=== PATIENT | male | born 1990 | race Caucasian/White ===

== ENCOUNTER 2017-03-27 02:03 | Emergency (ER) | payer MEDICAID, OTHER ==
[2017-03-27 02:04] VITALS: BMI 32.8
[2017-03-27 02:14] VITALS: BP 144/78; PULSE 80; RESP 17; TEMP 97.9; O2SAT 99
--- NOTE | 2017-03-27 02:35 | ED PDOC ---
Arrival/HPI - General Chief Complaint: Medical Clearance Time Seen by Provider: 03/27/17 02:12 Historian: Patient - History of Present Illness Narrative History of Present Illness (Text): 03/27/17 02:31 Arun Bradley is a 27 year old male smoker, whose past medical history includes anxiety, who presents to the ED for head "tingling." Patient states yesterday morning he woke up with a tingling sensation in his head and right upper extremity, which resolved on its own. Patient states tonight while going to sleep he felt similar tingling sensation, which also resolved after a few minutes. Patient states he feels fine currently but reports he was concerned and came in for further evaluation. Patient denies any headache, dizziness, vision changes, speech changes, focal neurological deficits, chest pain, nausea , vomiting, neck pain, back pain, or any other complaints. Symptom Onset: Gradual Symptom Course: Resolved Activities at Onset: Rest, Light Context: Home Past Medical History - Provider Review Nursing Documentation Reviewed: Yes - Psychiatric Hx Panic Disorder: Yes (3 yrs ago) Hx Substance Use: No Family/Social History - Physician Review Nursing Documentation Reviewed: Yes Family/Social History: Unknown Family HX Smoking Status: Current Some Days Smoker Hx Alcohol Use: Yes Hx Substance Use: No Allergies/Home Meds Allergies/Adverse Reactions: Allergies No Known Allergies Allergy (Verified 03/27/17 02:14) Home Medications: Home Meds Medication Instructions Recorded Confirmed No Known Home Med 06/10/16 03/27/17 Review of Systems - Physician Review All systems were reviewed & negative as marked: Yes - Review of Systems Constitutional: Normal. absent: Fevers Eyes: Normal. absent: Vision Changes ENT: Normal Respiratory: Normal. absent: SOB, Cough Cardiovascular: Normal. absent: Chest Pain Gastrointestinal: Normal. absent: Abdominal Pain, Diarrhea, Nausea, Vomiting Genitourinary Male: Normal. absent: Dysuria, Frequency, Hematuria, Urinary Output Changes Musculoskeletal: Normal. absent: Back Pain, Neck Pain Skin: Normal Neurological: absent: Headache, Dizziness, Focal Weakness, Speech Changes Endocrine: Normal Hemo/Lymphatic: Normal Psychiatric: Normal Physical Exam Vital Signs Reviewed: Yes Vital Signs Temp Pulse Resp BP Pulse Ox 03/27/17 02:13 97.9 F 80 17 144/78 99 Temperature: Afebrile Blood Pressure: Normal Pulse: Regular Respiratory Rate: Normal Appearance: Positive for: Well-Appearing, Non-Toxic, Comfortable Pain Distress: None Mental Status: Positive for: Alert and Oriented X 3 - Systems Exam Head: Present: Atraumatic, Normocephalic Pupils: Present: PERRL Extroacular Muscles: Present: EOMI Conjunctiva: Present: Normal Mouth: Present: Moist Mucous Membranes Neck: Present: Normal Range of Motion Respiratory/Chest: Present: Clear to Auscultation, Good Air Exchange. No: Respiratory Distress, Accessory Muscle Use Cardiovascular: Present: Regular Rate and Rhythm, Normal S1, S2. No: Murmurs Abdomen: Present: Normal Bowel Sounds. No: Tenderness, Distention, Peritoneal Signs Upper Extremity: Present: Normal Inspection. No: Cyanosis, Edema Lower Extremity: Present: Normal Inspection. No: Edema Neurological: Present: GCS=15, CN II-XII Intact, Speech Normal Skin: Present: Warm, Dry, Normal Color. No: Rashes Psychiatric: Present: Alert, Oriented x 3, Normal Insight, Normal Concentration Medical Decision Making ED Course and Treatment: 03/27/17 02:31 Impression: 27 year old male complaining of head and right arm "tingling" sensation. Plan: -- CT Head w/o contrast -- EKG -- Chest X-ray -- Labs -- Reassess and disposition Progress Notes: 03/27/17 03:44 Reviewed radiology, CT Head shows: Brain: No intracranial hemorrhage. No mass. No definite edema. Ventricles: No hydrocephalus. Bones/joints: No acute fracture. Soft tissues: Unremarkable. Sinuses: Scattered minimal mucosal thickening of ethmoid sinuses. Mastoid air cells: No mastoid effusion. Orbits: Unremarkable as visualized. IMPRESSION: 1. No acute intracranial abnormality. 2. Incidental/non-acute findings are described above. 03/27/17 04:03 Reviewed EKG, sinus bradycardia at 48 bpm. Sinus arrhythmia. Non-specific ST/T wave changes. 03/27/17 04:43 Reviewed Chest X-ray, shows no acute processes. 03/27/17 05:01 On reevaluation the patient feels better and is in no acute distress. I have discussed the results and plan with the patient, who expresses understanding. Patient given the opportunity to ask question, all questions were answered and there is agreement with the plan to discharge the patient home. Patient is stable for discharge. Patient was instructed to follow up with physician/clinic in 1-2 days or return if symptoms persist/worsen or new concerning symptoms arise. Re-evaluation Time: 05:01 Reassessment Condition: Re-examined, Improved - Lab Interpretations Lab Results: 03/27/17 04:00 03/27/17 04:00 Lab Results 03/27/17 04:00: Sodium 138, Potassium 3.8, Chloride 101, Carbon Dioxide 26, Anion Gap 15, BUN 28 H, Creatinine 1.1, Est GFR ( Amer) > 60, Est GFR ( Non-Af Amer) > 60, Random Glucose 86, Calcium 9.6, Total Bilirubin 0.5, AST 33, ALT 53, Alkaline Phosphatase 44, Total Protein 7.4, Albumin 4.5, Globulin 2.9, Albumin/Globulin Ratio 1.6 03/27/17 04:00: WBC 6.7, RBC 5.40, Hgb 15.7, Hct 44.7, MCV 82.8, MCH 29.1, MCHC 35.1, RDW 12.9, Plt Count 198, MPV 9.4, Gran % 45.9 L, Lymph % (Auto) 40.0 H, [place] % (Auto) 8.2 H, Eos % (Auto) 5.8 H, Baso % (Auto) 0.1, Gran # 3.05, Lymph # 2.7, [place] # 0.6, Eos # 0.4, Baso # 0.01 I have reviewed the lab results: Yes - RAD Interpretation Radiology Orders: 03/27/17 02:31 HEAD W/O CONTRAST [CT] Stat 03/27/17 03:51 CHEST TWO VIEWS (PA/LAT) [RAD] Stat Tree Chipper: ED Physician, Radiologist - EKG Interpretation Interpreted by ED Physician: Yes Type: 12 lead EKG - Scribe Statement The provider has reviewed the documentation as recorded by the Chris Blum Provider Scribe Attestation: All medical record entries made by the Scribe were at my direction and personally dictated by me. I have reviewed the chart and agree that the record accurately reflects my personal performance of the history, physical exam, medical decision making, and the department course for this patient. I have also personally directed, reviewed, and agree with the discharge instructions and disposition. Disposition/Present on Arrival - Present on Arrival Any Indicators Present on Arrival: No History of DVT/PE: No History of Uncontrolled Diabetes: No Urinary Catheter: No History of Decub. Ulcer: No History Surgical Site Infection Following: None - Disposition Have Diagnosis and Disposition been Completed?: Yes Diagnosis: Anxiety Disposition: HOME/ ROUTINE Disposition Time: 05:01 Patient Problems: Current Active Problems Problem Status Onset Anxiety Acute Condition: GOOD Discharge Instructions (ExitCare): Anxiety (ED) Additional Instructions: drink plenty of fluids Referrals: Rosibel Hathaway MD [Primary Care Provider] - Follow up with primary Forms: [email or web address] ([place])
--- NOTE | 2017-03-27 03:37 | CT ---
EXAM: CT Head Without Intravenous Contrast CLINICAL HISTORY: 27 years old, male; Pain; Headache; Additional info: [facility] TECHNIQUE: Axial computed tomography images of the head/brain without intravenous contrast. All CT scans at this facility use one or more dose reduction techniques, viz.: automated exposure control; ma/kV adjustment per patient size (including targeted exams where dose is matched to indication; i.e. head); or iterative reconstruction technique. COMPARISON: No relevant prior studies available. FINDINGS: Brain: No intracranial hemorrhage. No mass. No definite edema. Ventricles: No hydrocephalus. Bones/joints: No acute fracture. Soft tissues: Unremarkable. Sinuses: Scattered minimal mucosal thickening of ethmoid sinuses. Mastoid air cells: No mastoid effusion. Orbits: Unremarkable as visualized. IMPRESSION: 1. No acute intracranial abnormality. 2. Incidental/non-acute findings are described above.
[2017-03-27 04:15] LABS: BASO # 0.01 K/mm3 (0.0-2.0); BASO % 0.1 % (0.0-3.0); EOS # 0.4 (0.0-0.7); EOS % 5.8 % (1.5-5.0); GRAN # 3.05 (1.4-6.5); GRAN % 45.9 % (50.0-68.0); HEMATOCRIT 44.7 % (42.0-52.0); LYMPH # 2.7 (1.2-3.4); MEAN CELL VOLUME 82.8 fl (80.0-105.0); MEAN CORPUSCULAR HEMOGLOBIN 29.1 pg (25.0-35.0); MEAN CORPUSCULAR HGB CONC 35.1 g/dl (31.0-37.0); MEAN PLATELET VOLUME 9.4 fl (7.0-11.0); MONO # 0.6 (0.1-0.6); MONO % 8.2 % (1.0-6.0); RED CELL DISTRIBUTION WIDTH 12.9 % (11.5-14.5); WHITE BLOOD COUNT 6.7 10^3/ul (4.5-11.0)
[2017-03-27 04:30] LABS: ALB/GLOB RATIO 1.6 (1.1-1.8); ALKALINE PHOSPHATASE 44 U/L (38-133); ALT/SGPT 53 U/L (7-56); AST/SGOT 33 U/L (15-59); BILIRUBIN,TOTAL 0.5 mg/dL (0.2-1.3); BLOOD UREA NITROGEN 28 mg/dL (7-21); CALCIUM 9.6 mg/dL (8.4-10.5); CARBON DIOXIDE 26 mmol/L (21-33); CHLORIDE 101 mmol/L (98-107); GFR AFRICAN-AMERICAN > 60; GLUCOSE,RANDOM 86 mg/dL (70-110); POTASSIUM 3.8 mmol/L (3.6-5.0); SODIUM 138 mmol/L (132-148); TOTAL PROTEIN 7.4 g/dL (5.8-8.3)
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
--- NOTE | 2017-03-27 09:42 | CARD ---
APPROVED REPORT EKG Measurement Heart [id number] <Conclusion> Marked sinus bradycardia with marked sinus arrhythmia Rightward axis Borderline ECG
== END 2017-03-27 05:13 | disposition home or self-care (01) ==
LOC: ED 02:03
DX: F41.9 Anxiety disorder, unspecified (principal)

== ENCOUNTER 2018-05-12 02:37 | Emergency (ER) | payer MEDICAID ==
[2018-05-12 02:38] VITALS: BMI 32.8
[2018-05-12 02:54] VITALS: BP 151/74; PULSE 63; RESP 18; TEMP 98.1; O2SAT 99
== END 2018-05-12 03:16 | disposition left against medical advice (07) ==
LOC: ED 02:37
DX: Z02.89 Encounter for other administrative examinations (principal); M54.9 Dorsalgia, unspecified

== ENCOUNTER 2018-06-17 23:26 | Emergency (ER) | payer MEDICAID ==
[2018-06-17 23:42] VITALS: BP 119/90; PULSE 72; RESP 18; O2SAT 98
[2018-06-17 23:43] VITALS: BMI 30.5
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
--- NOTE | 2018-06-18 09:21 | RAD ---
Date of service: 06/18/2018 PROCEDURE: Cervical Spine Radiographs. HISTORY: Pain. COMPARISON: None available. FINDINGS: BONES: Alignment maintained. No fracture. Dens Intact. DISC SPACES: Normal. SOFT TISSUES: Normal. No prevertebral soft tissue swelling. OTHER FINDINGS: None. IMPRESSION: Normal cervical spine radiographs
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
== END 2018-06-18 02:13 | disposition home or self-care (01) ==
LOC: ED 23:26
DX: S13.4XXA Sprain of ligaments of cervical spine, initial encounter (principal); R51 Headache; R07.81 Pleurodynia; V47.5XXA Car driver injured in collision with fixed or stationary object in traffic accident, initial encounter; Y92.410 Unspecified street and highway as the place of occurrence of the external cause

== ENCOUNTER 2018-08-25 06:07 | Emergency (ER) | payer MEDICAID ==
[2018-08-25 06:08] VITALS: BMI 30.5
[2018-08-25 06:55] VITALS: PULSE 84; RESP 18; TEMP 99.5; O2SAT 97
[2018-08-25 06:57] VITALS: BP 119/68
--- NOTE | 2018-08-25 07:25 | ED PDOC ---
Arrival/HPI - General Chief Complaint: Flu-like Symptoms Time Seen by Provider: 08/25/18 07:14 Historian: Patient - History of Present Illness Narrative History of Present Illness (Text): 08/25/18 07:25 28 year old male, with no significant past medical history presents to the emergency department complaining of body aches and fever since last night. Patient states that he took Tylenol with little relief. He also reports assoc iated headache. Patient denies chills, dizziness, chest pain, shortness of breath, dyspnea on exertion, cough, abdominal pain, nausea, vomiting, diarrhea, back pain, neck pain, or any other complaint. Time/Duration: 24 hours Symptom Onset: Gradual Symptom Course: Unchanged Activities at Onset: Light Context: Home Past Medical History - Provider Review Nursing Documentation Reviewed: Yes - Infectious Disease Hx of Infectious Diseases: None - Psychiatric Hx Panic Disorder: Yes (3 yrs ago) Hx Substance Use: No - Anesthesia Hx Anesthesia: No Family/Social History - Physician Review Nursing Documentation Reviewed: Yes Family/Social History: No Known Family HX Smoking Status: Current Some Days Smoker Hx Alcohol Use: Yes Hx Substance Use: No Allergies/Home Meds Allergies/Adverse Reactions: Allergies No Known Allergies Allergy (Verified 06/17/18 23:47) Review of Systems - Physician Review All systems were reviewed & negative as marked: Yes - Review of Systems Respiratory: absent: SOB Cardiovascular: absent: Chest Pain Physical Exam - Physical Exam Narrative Physical Exam (Text): 08/25/18 07:25 Constitutional: No acute distress. Head: Normocephalic. Atraumatic. Eyes: PERRL. ENT: Moist mucous membranes. Neck: Supple. No nuchal rigidity. Cardiovascular: Regular rate. Chest: No tenderness. Respiratory: Clear to auscultation bilaterally. GI: Soft. Nontender. Nondistended. Back: No CVA tenderness. Musculoskeletal: No tenderness or swelling of extremities. Skin: No rash. Neurologic: Alert, no focal deficit. Vital Signs Reviewed: Yes Vital Signs Temp Pulse Resp BP Pulse Ox 08/25/18 06:56 119/68 08/25/18 06:51 99.5 F 84 18 97 Temperature: Afebrile Blood Pressure: Normal Pulse: Regular Respiratory Rate: Normal Appearance: Positive for: Well-Appearing, Non-Toxic, Comfortable Pain Distress: None Mental Status: Positive for: Alert and Oriented X 3 Medical Decision Making ED Course and Treatment: 08/25/18 07:25 Impression: 28 year old male who presents to the emergency department complaining of fever and body aches. Consistent with influenza within treatment period and without vital sign abnormalities and appears well. Plan: -- Tamiflu -- Toradol Return to ED for worsening pain, fever, vomiting, dyspnea, or any other problem. - Scribe Statement The provider has reviewed the documentation as recorded by the Scribchristopher Pizano Provider Scribe Attestation: All medical record entries made by the Scribe were at my direction and personally dictated by me. I have reviewed the chart and agree that the record accurately reflects my personal performance of the history, physical exam, medical decision making, and the department course for this patient. I have also personally directed, reviewed, and agree with the discharge instructions and disposition. Disposition/Present on Arrival - Present on Arrival Any Indicators Present on Arrival: No History of DVT/PE: No History of Uncontrolled Diabetes: No Urinary Catheter: No History of Decub. Ulcer: No History Surgical Site Infection Following: None - Disposition Have Diagnosis and Disposition been Completed?: Yes Diagnosis: Influenza-like illness Disposition: HOME/ ROUTINE Disposition Time: 07:21 Patient Plan: Discharge Condition: STABLE Discharge Instructions (ExitCare): Flu Prescriptions: Famotidine [Pepcid] 1 tab PO BID #14 tab Ibuprofen [Motrin] 600 mg PO Q6 #25 tab Oseltamivir Phosphate [Tamiflu] 1 cap PO BID #9 capsule Forms: [facility] (Urdu), WORK NOTE
== END 2018-08-25 07:58 | disposition home or self-care (01) ==
LOC: ED 06:07
DX: J11.1 Influenza due to unidentified influenza virus with other respiratory manifestations (principal)
CPT/HCPCS: 96372; 99285; J1885